=== PATIENT | female | born 1980 | race Caucasian/White ===

== ENCOUNTER 2016-07-26 18:05 | Emergency (ER) | payer MEDICAID ==
[~2016-07-26] VITALS: Ht 177.8 cm; Wt 100.0 kg
[~2016-07-26 18:05] MED LIST: CYCL-36 PO; DICL50 PO
[2016-07-26 18:09] VITALS: BP 129/78; PULSE 126; RESP 28; TEMP 97.9; O2SAT 95
== END 2016-07-26 18:30 | disposition left against medical advice (07) ==
LOC: NED 18:05
DX: R55 Syncope and collapse (principal); R11.0 Nausea; Z53.21 Procedure and treatment not carried out due to patient leaving prior to being seen by health care provider
CPT/HCPCS: 99281

== ENCOUNTER 2016-09-24 21:48 | Emergency (ER) | payer MEDICAID ==
[~2016-09-24] VITALS: Ht 177.8 cm; Wt 104.6 kg
[2016-09-24 21:49] VITALS: BP 122/67; PULSE 95; RESP 16; TEMP 98.2; O2SAT 98
[2016-09-25 02:20] VITALS: RESP 18; O2SAT 99
[2016-09-25 03:02] LABS: AUTOMATED NEUTROPHIL # 8.7 TH/MM3 (1.8-7.7); BASOPHIL # 0.1 TH/MM3 (0-0.2); BASOPHIL % 0.5 % (0.0-2.0); EOSINOPHIL # 0.1 TH/MM3 (0-0.4); EOSINOPHIL % 1.1 % (0.0-4.0); HEMATOCRIT 36.2 % (35.0-46.0); HEMO FLAGS DIFF FINAL; LYMPH % 13.2 % (9.0-44.0); LYMPHOCYTE # 1.4 TH/MM3 (1.0-4.8); MEAN CELL VOLUME 91.8 FL (80.0-100.0); MEAN CORPUSCULAR HEMOGLOBIN 32.2 PG (27.0-34.0); MEAN CORPUSCULAR HGB CONC 35.1 % (32.0-36.0); MONO % 5.1 % (0.0-8.0); NEUT % 80.1 % (16.0-70.0); PLATELET COUNT 181 TH/MM3 (150-450); RED BLOOD COUNT 3.95 MIL/MM3 (4.00-5.30); RED CELL DISTRIBUTION WIDTH 12.8 % (11.6-17.2); WHITE BLOOD COUNT 10.8 TH/MM3 (4.0-11.0)
--- NOTE | 2016-09-25 03:13 | RADRPT ---
EXAM DATE/TIME: 09/25/2016 02:39 [place] COMPARISON: CHEST SINGLE AP, April 24, 2015, 18:46. INDICATIONS : Chest pain. MEDICAL HISTORY : None. SURGICAL HISTORY : None. ENCOUNTER: Initial ACUITY: 1 day PAIN SCORE: 6/10 LOCATION: Bilateral chest FINDINGS: A single view of the chest demonstrates the lungs to be symmetrically aerated without evidence of mas s, infiltrate or effusion. The cardiomediastinal contours are unremarkable. Osseous structures are intact. CONCLUSION: No acute disease. Luc Reis MD on September 25, 2016 at 3:12 Board Certified Radiologist. This report was verified electronically.
[2016-09-25 03:17] LABS: APTT (PATIENT) 29.6 SEC (24.3-30.1); PROTHROMBIN TIME - PATIENT 10.7 SEC (9.8-11.6)
[2016-09-25 03:25] LABS: BACTERIA, URINE RARE /hpf; BLOOD, URINE NEG (NEG); GLUCOSE,URINE NEG (NEG); KETONE, URINE NEG (NEG); MUCUS URINE FEW /lpf (OCC); NITRITE,URINE POS (NEG); PH, URINE 6.5 (5.0-8.5); SQUAMOUS EPITHELIAL CELL URINE 1 /hpf (0-5); URINE COLOR YELLOW (YELLW/STRAW)
[2016-09-25] MEDS ORDERED: ONDANSETRON HCL 4 MG/2 ML VIAL IV ONE (03:30)
[2016-09-25] MEDS ORDERED: SODIUM CHLOR 0.9% 1000 ML INJ 1,000 ML IV ONE (03:30)
[2016-09-25] MEDS ORDERED: cefTRIAXone INJ 1,000 MG in SODIUM CHLORIDE 0.9% INJ 100 ML IV ONE (03:30)
[2016-09-25] MEDS ORDERED: KETOROLAC TROMETHAMINE 30 MG/ML (IVP) VIAL IV PUSH ONE (03:45)
[2016-09-25 04:12] LABS: ALKALINE PHOSPHATASE 62 U/L (45-117); CREATINE KINASE 116 U/L (26-192); TOTAL BILIRUBIN ADULT 0.6 MG/DL (0.2-1.0)
[2016-09-25 04:22] LABS: ALT (GPT) 24 U/L (10-53); ANION GAP 8 MEQ/L (5-15); AST (GOT) 21 U/L (15-37); BICARBONATE 25.7 MEQ/L (21.0-32.0); BLOOD UREA NITROGEN 9 MG/DL (7-18); CHLORIDE 107 MEQ/L (98-107); GLOMERULAR FILTRATION RATE 74 ML/MIN (>89); POTASSIUM 3.7 MEQ/L (3.5-5.1); SODIUM (NA) 141 MEQ/L (136-145)
[2016-09-25 04:24] LABS: CKMB 1.6 NG/ML (0.5-3.6)
[2016-09-25] MEDS ORDERED: NAPR1TAB34 PO (04:57)
[2016-09-25] MEDS ORDERED: CALG500 PO (04:57)
[2016-09-25] MEDS ORDERED: ZOFR4TAB3 SL (04:57)
--- NOTE | 2016-09-25 04:58 | PD ---
HPI Chief Complaint: Back/ Neck Pain or Injury Time Seen by Provider: 02:06 Travel History International Travel<30 days: No Contact w/Intl Traveler<30days: No Traveled to known affect area: No History of Present Illness HPI The patient is 35 year old female who presents to the [facility] emergency department with a history of cramping pains in her legs and feet associated with a burning sensations in her hands that began over the last week. She reports that the right hand seems to be worse in the left. She reports that she is right-handed. She reports that she has had swelling of both hands. The patient reports that she just recently started a new job over the last month and a half. She reports that she is doing some heavy lifting. She also reports using her hands more frequently. She reports having some low back pain associated with this. She also reports having a sharp pain in her chest intermittently over the last few days. She denies having any history of cardiac disease. She reports that she's had nausea and vomiting for 2 hours, 2 days ago. She reports that she continues to have a diminished appetite and nausea over the last 2 days. She denies having any shortness of breath. She denies having any diarrhea. Her last bowel movement was this morning and was normal. She reports that her last menstrual cycle ended 2 days ago. The patient denies any recent fevers, cough, congestion, neck pain, shortness of breath, abdominal pain,diarrhea, urinary symptoms, or neurologic symptoms. [facility] Past Medical History Narrative Medical The patient's past medical history is significant for having a cardiac arrest related to a new medication, Celexa when she was in her 20s. The patient has a history of anxiety and depression. The patient denies having a primary care physician. Anxiety: Yes Cardiovascular Problems: Yes (CARDIAC ARREST AT AGE 19'S FROM CELEXA) Diminished Hearing: No Immunizations Current: Yes Tetanus Vaccination: < 5 Years Influenza Vaccination: No ?: Not LMP: 09/23/16 Menopausal: No : 9 Para: 5 Miscarriage: 4 Tubal Ligation: Yes (2004) Past Surgical History Narrative Surgical The patient's past surgical history is significant for 2 prior C-sections, bilateral tubal ligation. Section: Yes (2000, 2004) Gynecologic Surgery: Yes (tubal ligation) Social History Alcohol Use: Yes (OCCASIONALLY) Tobacco Use: Yes (< 1 PPD) Substance Use: No Allergies-Medications (Allergen,Severity, Reaction): Coded Allergies: Celexa (Verified Allergy, Severe, Cardiac Arrest, 07/26/16) Reported Meds & Prescriptions Reported Meds & Active Scripts Active Bactrim DS (Sulfamethoxazole-Trimethoprim) 800-160 Mg Tab 1 Tab PO BID Zofran Odt (Ondansetron Odt) 4 Mg Tab 4 Mg SL Q6HR PRN Naproxen EC (Naproxen) 500 Mg Tabdr 500 Mg PO BID PRN Calcium Gluconate 500 Mg Tab 500 Mg PO BID 30 Days 1 gram of salt is 93 mg elemental calcium. Flexeril (Cyclobenzaprine HCl) 10 Mg Tab 10 Mg PO TID Voltaren (Diclofenac Sodium) 50 Mg Tabec 50 Mg PO TID Review of Systems Except as stated in HPI: all other systems reviewed are Neg General / Constitutional: No: Fever Eyes: No: Visual changes HENT: Positive: Sore Throat, No: Headaches Cardiovascular: Positive: Chest Pain or Discomfort (chest wall pain) Respiratory: No: Shortness of Breath Gastrointestinal: Positive: Nausea, Vomiting, Loss of Appetite, No: Diarrhea, Abdominal Pain, Constipation, Changes in Bowel Habits, Indigestion Genitourinary: No: Urgency, Frequency, Dysuria, Flank Pain Musculoskeletal: Positive: Myalgias, Pain Skin: No Rash Neurologic: No: Weakness, Focal Abnormalities, Change in Mentation, Slurred Speech, Sensory Disturbance Psychiatric: No: Depression Endocrine: No: Polydipsia Hematologic/Lymphatic: No: Easy Bruising Physical Exam Narrative General: The patient is well-developed well-nourished female in no acute distress. Head and Neck exam: Head is normocephalic atraumatic. Eyes: EOMI, pupils are equal round and reactive to light. Nose: Midline septum with pink mucous membranes Mouth: Dentition unremarkable. Moist mucus membranes. Posterior oropharynx is erythematous. No tonsillar hypertrophy. Uvula midline. Airway patent. Neck: No palpable lymphadenopathy. No nuchal rigidity. No thyromegaly. Cardiovascular: Regular rate and rhythm without murmurs, gallops, or rubs. No pulse deficit to the extremities on simultaneous auscultation and palpation of her radial artery. Lungs: Clear to auscultation bilaterally. No wheezes, rhonchi, or rales. Abdomen: Soft, without tenderness to palpation in all 4 quadrants of the abdomen. No guarding, rebound, or rigidity. Normal bowel sounds are audible. No tenderness on palpation of McBurney's point. Negative Eng's sign. Extremities: No clubbing, cyanosis, or edema. 2+ pulses in all 4 extremities. The patient on examination of the right wrist has a positive Tinel's sign suspicious for carpal tunnel syndrome. Back: No spinous process tenderness to palpation. No costovertebral angle tenderness to palpation. Neurologic Exam: Grossly nonfocal. Skin Exam: No rash noted. Intact skin that is warm and dry. Data Data Last Documented VS Vital Signs Date Time Temp Pulse Resp B/P Pulse Ox O2 Delivery O2 Flow Rate FiO2 09/25/16 02:20 18 99 Room Air 09/25/16 02:20 75 09/24/16 21:49 98.2 122/67 Orders Electrocardiogram (09/25/16 02:06) Complete Blood Count With Diff (09/25/16 02:06) Comprehensive Metabolic Panel (09/25/16 02:06) Creatine Kinase (Cpk) (09/25/16 02:06) Ckmb (Isoenzyme) Profile (09/25/16 02:06) Troponin I (09/25/16 02:06) B-Type Natriuretic Peptide (09/25/16 02:06) Prothrombin Time / Inr (Pt) (09/25/16 02:06) Act Partial Throm Time (Ptt) (09/25/16 02:06) Lipase (09/25/16 02:06) Ua Includes Microscopic (09/25/16 02:06) D-Dimer (09/25/16 02:06) Magnesium (Mg) (09/25/16 02:06) Chest, Single Ap (09/25/16 02:06) Iv Access Insert/Monitor (09/25/16 02:06) Ecg Monitoring (09/25/16 02:06) Oximetry (09/25/16 02:06) Ed Urine Pregnancytest Poc (09/25/16 02:06) Sodium Chlor 0.9% 1000 Ml Inj (Ns 1000 M (09/25/16 03:30) Ondansetron Inj (Zofran Inj) (09/25/16 03:30) Ceftriaxone Inj (Rocephin Inj) (09/25/16 03:30) Oral Rehydration (09/25/16 03:30) Ketorolac Inj (Toradol Inj) (09/25/16 03:45) CKMB (09/25/16 03:40) CKMB% (09/25/16 03:40) Labs Laboratory Tests Test 09/25/16 09/25/16 09/25/16 02:25 03:05 03:40 White Blood Count 10.8 TH/MM3 Red Blood Count 3.95 MIL/MM3 Hemoglobin 12.7 GM/DL Hematocrit 36.2 % Mean Corpuscular Volume 91.8 FL Mean Corpuscular Hemoglobin 32.2 PG Mean Corpuscular Hemoglobin 35.1 % Concent Red Cell Distribution Width 12.8 % Platelet Count 181 TH/MM3 Mean Platelet Volume 9.1 FL Neutrophils (%) (Auto) 80.1 % Lymphocytes (%) (Auto) 13.2 % Monocytes (%) (Auto) 5.1 % Eosinophils (%) (Auto) 1.1 % Basophils (%) (Auto) 0.5 % Neutrophils # (Auto) 8.7 TH/MM3 Lymphocytes # (Auto) 1.4 TH/MM3 Monocytes # (Auto) 0.5 TH/MM3 Eosinophils # (Auto) 0.1 TH/MM3 Basophils # (Auto) 0.1 TH/MM3 CBC Comment DIFF FINAL Differential Comment Prothrombin Time 10.7 SEC Prothromb Time International 1.0 RATIO Ratio Activated Partial 29.6 SEC Thromboplast Time D-Dimer Quantitative (PE/DVT) 0.21 MG/L FEU B-Type Natriuretic Peptide 11 PG/ML Urine Color YELLOW Urine Turbidity HAZY Urine pH 6.5 Urine Specific [place] 1.012 Urine Protein NEG mg/dL Urine Glucose (UA) NEG mg/dL Urine Ketones NEG mg/dL Urine Occult Blood NEG Urine Nitrite POS Urine Bilirubin NEG Urine Urobilinogen 2.0 MG/DL Urine Leukocyte Esterase TRACE Urine RBC LESS THAN 1 /hpf Urine WBC 6 /hpf Urine Squamous Epithelial 1 /hpf Cells Urine Bacteria RARE /hpf Urine Mucus FEW /lpf Sodium Level 141 MEQ/L Potassium Level 3.7 MEQ/L Chloride Level 107 MEQ/L Carbon Dioxide Level 25.7 MEQ/L Anion Gap 8 MEQ/L Blood Urea Nitrogen 9 MG/DL Creatinine 0.87 MG/DL Estimat Glomerular Filtration 74 ML/MIN Rate Random Glucose 85 MG/DL Calcium Level 8.2 MG/DL Magnesium Level 2.0 MG/DL Total Bilirubin 0.6 MG/DL Aspartate Amino Transf 21 U/L (AST/SGOT) Alanine Aminotransferase 24 U/L (ALT/SGPT) Alkaline Phosphatase 62 U/L Total Creatine Kinase 116 U/L Creatine Kinase MB 1.6 NG/ML Troponin I LESS THAN 0.02 NG/ML Total Protein 6.0 GM/DL Albumin 3.4 GM/DL Lipase 83 U/L MDM Medical Decision Making Medical Screen Exam Complete: Yes Emergency Medical Condition: Yes Medical Record Reviewed: Yes Interpretation(s) Last Impressions Chest X-Ray 09/25/16 0206 Signed Impressions: Service Date/Time: Sunday, September 25, 2016 02:39 - CONCLUSION: No acute disease. Luc Reis MD Differential Diagnosis Electrolyte derangement, versus viral syndrome, versus urinary tract infection, versus , muscle spasms, versus carpal tunnel syndrome Narrative Course During the course of the patients emergency department visit, the patients history, examination, and differential diagnosis were reviewed with the patient. The patient had IV access obtained and blood work sent for analysis. The patient was placed on a satellite project site monitor with oximetry and blood pressure monitoring. An EKG was done on arrival. The patient's EKG shows a sinus rhythm heart rate of 71, no acute ST segment elevation or depression, T waves are inverted in V1. A bedside test was negative. The patient was provided normal saline 1 L IV fluid bolus, Toradol 15 mg IV, Zofran 4 mg IV for nausea, Rocephin 1 g IV after urinary tract infection was identified and urinalysis. The patients laboratory studies were reviewed and remarkable for a urinalysis that shows evidence of urinary tract infection, CBC is unremarkable, CMP is remarkable for mild hypocalcemia at 8.2 which was supplemented. PT PTT within normal limits. Radiology studies were reviewed and remarkable for a chest x-ray that shows no acute abnormality. I suspect that the patient's hand and wrist pain is related to an overuse injury with her new job, versus carpal tunnel syndrome. She was instructed regarding wearing a brace. The patient was given a prescription for an anti- inflammatory pain medicine to be taken as needed. The patient was also diagnosed with a urinary tract infection. The patient will be discharged home with a prescription for Bactrim. The patient was also noted to have mild hypocalcemia. The patient was given a prescription for calcium gluconate. The patient is resting comfortably and feels better, is alert and in no distress. The patients results and examination findings were discussed with the patient. The repeat examination is unremarkable and benign. The history, exam, diagnostic testing, and current condition do not suggest any significant pathology to warrant further testing, continued ED treatment, admission, or surgical evaluation at this point. The vital signs have been stable. The patient does not have uncontrollable pain, intractable vomiting, or other significant symptoms. The patient's condition is stable and appropriate for discharge. The patient will pursue further outpatient evaluation with a primary care physician or other designated or consulting physician as indicated in the discharge instructions. The patient expressed understanding and was agreeable with this plan. Diagnosis Primary Impression: Carpal tunnel syndrome of right wrist Additional Impressions: Urinary tract infection Qualified Code: N30.00 - Acute cystitis without hematuria Body aches Referrals: Primary Care Physician 1 week Patient Instructions: Carpal Tunnel Syndrome (ED), General Instructions, Urinary Tract Infection in Women (ED) Med/Other Pt SpecificInfo: Prescription(s) given Scripts Sulfamethoxazole-Trimethoprim (Bactrim DS)800-160 Mg Tab1 Tab PO BID #20 TAB Ref 0 Prov:Megha Webb MD 09/25/16 Ondansetron Odt (Zofran Odt)4 Mg Tab4 Mg SL Q6HR PRN (Nausea/Vomiting) #7 TAB Ref 0 Prov:Megha Webb MD 09/25/[address] (Naproxen EC)500 Mg [id number] Mg PO BID PRN (PAIN GREATER THAN 5) # 10 TAB Ref 0 Prov:Megha Webb MD 09/25/16 Calcium Gluconate 500 Mg [id number] Mg PO BID 30 Days Ref 0 1 gram of salt is 93 mg elemental calcium. Prov:Megha Webb MD 09/25/16 Disposition: 01 DISCHARGE HOME Condition: Stable Megha Webb MD Sep 25, 2016 04:58
[2016-09-25] MEDS ORDERED: BACT800T5 PO (05:09)
--- NOTE | 2016-09-26 12:52 | EKG ---
Date Performed: 09/25/2016 Time Performed: 02:31:18 PTAGE: 35 years EKG: Sinus rhythm NORMAL ECG PREVIOUS TRACING : 03/21/1996 13.53 Compared to prior tracing no significant change DOCTOR: Geoff Brandon Interpretating Date/Time 09/26/2016 12:50:21
== END 2016-09-25 06:48 | disposition home or self-care (01) ==
LOC: NEPE 21:48
DX: G56.01 Carpal tunnel syndrome, right upper limb (principal); N39.0 Urinary tract infection, site not specified; F17.210 Nicotine dependence, cigarettes, uncomplicated
CPT/HCPCS: 71010; 80053; 81001; 82550; 82552; 83690; 83735; 83880; 84484; 84703; 85025; 85379; 85610; 85730; 93005; 96365; 96375; 99284; J0696; J1885; J2405; J7030

== ENCOUNTER 2016-10-30 09:09 | Emergency (ER) | payer MEDICAID, OTHER ==
[~2016-10-30 09:09] MED LIST changes: +BACT800T5 PO; +CALG500 PO; +NAPR1TAB34 PO; +ZOFR4TAB3 SL
[2016-10-30 09:17] VITALS: BP 131/78; PULSE 120; RESP 20; TEMP 98.2; O2SAT 100
--- NOTE | 2016-10-30 09:24 | PD ---
HPI Chief Complaint: Alcohol/Drug Intoxication Time Seen by Provider: 09:24 Travel History International Travel<30 days: No Contact w/Intl Traveler<30days: No Traveled to known affect area: No History of Present Illness HPI 35-year-old female was brought in by EMS with intoxication, crying, hysterical. She was found passed out in the front lawn of a halfway. 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 Initially it was extremely difficult to communicate with her since she was hysterical. Vital signs were within acceptable limits. [facility] Past Medical History Narrative Medical List of her past medical, surgical, social and family history is reviewed from the nursing note. Anxiety: Yes Cardiovascular Problems: Yes (CARDIAC ARREST AT AGE 19'S FROM CELEXA) Diminished Hearing: No Immunizations Current: Yes Tetanus Vaccination: < 5 Years ?: Not Menopausal: No : 9 Para: 5 Miscarriage: 4 Tubal Ligation: Yes (2004) Past Surgical History Section: Yes (2000, 2004) Gynecologic Surgery: Yes (tubal ligation) Social History Alcohol Use: Yes (OCCASIONALLY) Tobacco Use: Yes (< 1 PPD) Substance Use: Yes Allergies-Medications (Allergen,Severity, Reaction): Coded Allergies: Bebe (Verified Allergy, Severe, Cardiac Arrest, 10/30/16) Comments List of her allergies reviewed from the nursing note. Reported Meds & Prescriptions Reported Meds & Active Scripts Active No Active Prescriptions or Reported Medications Narrative Medication List of her home medications reviewed from the nursing note. Review of Systems Except as stated in HPI: all other systems reviewed are Neg Physical Exam Narrative GENERAL: Patient is asleep but wakes up on calling her name. SKIN: Focused skin assessment warm/dry. Skin covered in multiple bruises especially on the lower extremity of different stages. Poor skin hygiene HEAD: Atraumatic. Normocephalic. EYES: Pupils equal and round. No scleral icterus. No injection or drainage. ENT: No nasal bleeding or discharge. Mucous membranes pink and moist. NECK: Trachea midline. No JVD. CARDIOVASCULAR: Regular rate and rhythm. No murmur appreciated. RESPIRATORY: No accessory muscle use. Clear to auscultation. Breath sounds equal bilaterally. GASTROINTESTINAL: Abdomen soft, non-tender, nondistended. Hepatic and splenic margins not palpable. MUSCULOSKELETAL: No obvious deformities. No clubbing. No cyanosis. No edema. NEUROLOGICAL: Awake and alert. No obvious cranial nerve deficits. Motor grossly within normal limits. Normal speech. Gait was slightly wobbly but able to support herself and take a few steps. PSYCHIATRIC: Appropriate mood and affect; insight and judgment normal. Data Data Last Documented VS Vital Signs Date Time Temp Pulse Resp B/P Pulse Ox O2 Delivery O2 Flow Rate FiO2 10/30/16 09:17 98.2 120 20 131/78 100 MDM Medical Decision Making Medical Screen Exam Complete: Yes Emergency Medical Condition: Yes Medical Record Reviewed: Yes Differential Diagnosis Alcohol intoxication, substance abuse, dehydration Narrative Course 1:40 PM patient was given some Gatorade to drink along with some crackers to eat. I'm comfortable discharging her home at this point. Her condition currently is from alcohol intoxication and quite possibly substance abuse. If she wants to help herself she needs to go to a drug rehabilitation place. Patient was observed for over 4 hours here. Procedures EKG Prior to Arrival: No Diagnosis Primary Impression: Alcohol intoxication Qualified Code: F10.129 - Alcohol intoxication, with unspecified complication Additional Impression: Substance abuse Referrals: Primary Care Physician Additional Instructions: Please try to find a drug rehabilitation place for yourselves to get rid of addiction problems. Even go to [facility] Keep yourself hydrated Med/Other Pt SpecificInfo: No Change to Meds Scripts No Active Prescriptions or Reported Meds Disposition: 01 DISCHARGE HOME Condition: Stable Rommel Lowry MD October 30, 2016 09:24
== END 2016-10-30 13:53 | disposition home or self-care (01) ==
LOC: NEPC 09:09
DX: F10.129 Alcohol abuse with intoxication, unspecified (principal); F15.10 Other stimulant abuse, uncomplicated; Z72.0 Tobacco use
CPT/HCPCS: 99284

== ENCOUNTER 2017-04-16 05:12 | Inpatient (IN) | payer OTHER ==
[~2017-04-16] VITALS: Ht 177.8 cm; Wt 84.0 kg
[2017-04-16 05:19] VITALS: BP 136/85; PULSE 109; RESP 18; TEMP 98; O2SAT 100
[2017-04-16] MEDS ORDERED: OFFICE MEDICATION PO (05:19)
[2017-04-16] MEDS ORDERED: SODIUM CHLOR 0.9% 1000 ML INJ 1,000 ML IV SCH ×2 (05:31→07:59)
[2017-04-16 05:35] VITALS: O2SAT 98
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
[2017-04-16] MEDS ORDERED: ceFAZolin 2 GM PREMIX 50 ML IV ONE (05:45)
[2017-04-16] MEDS ORDERED: SODIUM CHLORIDE 0.9% FLUSH 10 ML FLUSH IVF PRN (05:45)
[2017-04-16] MEDS ORDERED: MORPHINE SULFATE 4 MG/ML INJ IV PUSH ONE (05:45)
[2017-04-16] MEDS ORDERED: DIPHTH/TETANUS/ACEL PERTUSSIS (BOOSTER) 0.5 ML VIAL/PFS IM ONE ×2 (05:45→05:53)
[2017-04-16] MEDS ORDERED: ONDANSETRON HCL 4 MG/2 ML VIAL IV PUSH ONE (05:45)
[2017-04-16 05:52] LABS: I-STAT POTASSIUM 3.8 MMOL/L (3.5-4.9); I-STAT SODIUM 141 MMOL/L (138-146)
[2017-04-16 05:55] LABS: AUTOMATED NEUTROPHIL # 5.1 TH/MM3 (1.8-7.7); BASOPHIL # 0.1 TH/MM3 (0-0.2); BASOPHIL % 0.8 % (0.0-2.0); EOSINOPHIL # 0.1 TH/MM3 (0-0.4); EOSINOPHIL % 0.9 % (0.0-4.0); HEMATOCRIT 36.2 % (35.0-46.0); HEMO FLAGS DIFF FINAL; LYMPHOCYTE # 1.6 TH/MM3 (1.0-4.8); MEAN CELL VOLUME 93.9 FL (80.0-100.0); MEAN CORPUSCULAR HEMOGLOBIN 31.8 PG (27.0-34.0); MEAN CORPUSCULAR HGB CONC 33.9 % (32.0-36.0); NEUT % 70.3 % (16.0-70.0); PLATELET COUNT 200 TH/MM3 (150-450); RED BLOOD COUNT 3.86 MIL/MM3 (4.00-5.30); RED CELL DISTRIBUTION WIDTH 13.2 % (11.6-17.2); WHITE BLOOD COUNT 7.3 TH/MM3 (4.0-11.0)
--- NOTE | 2017-04-16 05:59 | RADRPT ---
EXAM DATE/TIME: 04/16/2017 05:50 [facility] COMPARISON: No previous studies available for comparison. INDICATIONS : Trauma Alert level 2, Dog bite to mid forearm MEDICAL HISTORY : None. SURGICAL HISTORY : None. ENCOUNTER: Initial ACUITY: 1 day PAIN SCORE: 9/10 LOCATION: Right Forearm FINDINGS: There is severe soft tissue laceration with gas in the soft tissues. There is no evidence of acute fr acture. No foreign body is identified. CONCLUSION: 1. Extensive laceration without fracture Joe Perez MD on April 16, 2017 at 5:57 Board Certified Radiologist. This report was verified electronically.
[2017-04-16 06:09] LABS: ALCOHOL LESS THAN 3 MG/DL (0-5)
[2017-04-16 06:10] LABS: APTT (PATIENT) 24.8 SEC (24.3-30.1); PROTHROMBIN TIME - PATIENT 10.7 SEC (9.8-11.6)
[2017-04-16] MEDS ORDERED: MORPHINE SULFATE 8 MG/ML INJ IV PUSH PRN (08:00)
[2017-04-16] MEDS ORDERED: ONDANSETRON HCL 4 MG/2 ML VIAL IV PUSH PRN (08:00)
[2017-04-16] MEDS ORDERED: ENALAPRILAT 1.25 MG/ML VIAL IV PUSH PRN (08:00)
[2017-04-16] MEDS ORDERED: SODIUM CHLORIDE 0.9% FLUSH 10 ML FLUSH IV FLUSH PRN (08:00)
[2017-04-16] MEDS ORDERED: PANTOPRAZOLE SODIUM 40 MG VIAL IVP SCH (09:00)
== END 2017-04-16 07:15 | disposition left against medical advice (07) | DRG 605 ==
LOC: NEPE 05:12 → NEDA 06:09
PROVIDERS: ADMIT Surgery; ATTEND Surgery
DX: S51.851A Open bite of right forearm, initial encounter (principal); W54.0XXA Bitten by dog, initial encounter; Z86.73 Personal history of transient ischemic attack (TIA), and cerebral infarction without residual deficits; Z72.0 Tobacco use
CPT/HCPCS: 73090; 80307; 82435; 82565; 82947; 84132; 84295; 84520; 85025; 85610; 85730; 86850; 86900; 86901; 90715; J0690; J2405; J7030